=== PATIENT | female | born 1995 | race Two or more races ===

== ENCOUNTER 2024-05-01 14:12 | Outpatient (CLI) | payer OTHER | END 2024-05-01 14:15 | disposition home or self-care (01) | LOC: PRENATAL 14:12 | PROVIDERS: ATTEND Obstetrics & Gynecology Maternal & Fetal Medicine | DX: O44.00 Complete placenta previa NOS or without hemorrhage, unspecified trimester (principal); Z3A.27 27 weeks gestation of pregnancy ==

== ENCOUNTER → 2024-06-14 14:47 | Outpatient (CLI) | payer OTHER | END | disposition home or self-care (01) | LOC: PRENATAL 14:47 | PROVIDERS: ATTEND Obstetrics & Gynecology Maternal & Fetal Medicine | DX: O26.849 Uterine size-date discrepancy, unspecified trimester (principal); O36.8199 Decreased fetal movements, unspecified trimester, other fetus; O24.419 Gestational diabetes mellitus in pregnancy, unspecified control; Z3A.32 32 weeks gestation of pregnancy ==

== ENCOUNTER 2024-07-10 12:13 | Outpatient (CLI) | payer OTHER | END 2024-07-10 12:14 | disposition home or self-care (01) | LOC: PRENATAL 12:13 | PROVIDERS: ATTEND Obstetrics & Gynecology Maternal & Fetal Medicine | DX: O26.849 Uterine size-date discrepancy, unspecified trimester (principal); O36.8199 Decreased fetal movements, unspecified trimester, other fetus; Z3A.36 36 weeks gestation of pregnancy ==

== ENCOUNTER 2024-08-01 15:23 | Inpatient (IN) | payer OTHER ==
[~2024-08-01] VITALS: Ht 157.5 cm; Wt 66.7 kg
[2024-08-01 15:36] VITALS: BP 136/79
[2024-08-01] MEDS ORDERED: RINGERS SOLUTION,LACTATED 1,000 ML IV SCH (16:00)
[2024-08-01 16:20] LABS: PH,URINE 6.5 (5.0-8.0); URINE APPEARANCE Clear; URINE BILIRRUBIN Negative (NEGATIVE); URINE BLOOD Negative; URINE COLOR Yellow; URINE GLUCOSE Negative (NEGATIVE); URINE KETONE Negative (NEGATIVE); URINE LEUKOCYTE Moderate; URINE NITRATE Negative; URINE PROTEIN Negative (NEGATIVE); URINE UROBILINOGEN 0.2 E.U./dl
[2024-08-01 16:22] LABS: HEMATOCRIT 37.8 % (36.0-45.00); HEMOGLOBIN 13.3 g/dL (12.0-15.00); MEAN CELL VOLUME 90.6 fL (80.00-100.00); MEAN CORPUSCULAR HEMOGLOBIN 31.8 pg (27.00-32.0); MEAN CORPUSCULAR HGB CONC 35.1 g/dl (32.0-36.0); PLATELET COUNT 182 K/uL (150-450); RED BLOOD COUNT 4.18 M/uL (4.00-6.00); RED CELL DISTRIBUTION WIDTH 14.2 % (11.5-14.5); URINE BACTERIA 1237.1 uL (0.0-1933); URINE EPITHELIAL CELLS 35.1 uL (0.0-38.8); URINE WBC 119.1 uL (0.0-23.2)
[2024-08-01 16:24] LABS: URINE RBC 1.7 uL (0.0-20.8)
[2024-08-01 16:47] LABS: INR < 0.93; PARTIAL THROMBOPLASTIN TIME 25.7 SECONDS (22.0-34.0); PROTHROMBIN TIME 9.8 SECONDS (9.0-11.5)
[2024-08-01 16:52] LABS: ALBUMIN 2.7 gm/dL (3.4-5.0); BILIRUBIN TOTAL 0.24 mg/dL (0.3-1.2); CREATININE SERUM 0.75 mg/dL (0.55-1.02); GFR 92.01; GLOBULINA 3.6 G/DL (2.4-3.5); POTASSIUM 4.08 mEq/L (3.5-5.1); TOTAL PROTEIN 6.3 gm/dL (6.4-8.2)
[2024-08-01] MEDS ORDERED: MISOPROSTOL 25 MCG TABLET ONE (17:59)
[2024-08-01] MEDS ORDERED: hydrOXYzine PAMOATE 50 MG CAPSULE PO PRN (18:30)
[2024-08-01] MEDS ORDERED: MISOPROSTOL 25 MCG TABLET VAG ONE (18:30)
[2024-08-01 20:13] VITALS: BP 132/73
[2024-08-01 23:08] VITALS: BP 138/85
[2024-08-02] VITALS (10 sets, daily range): BP systolic 111–139; BP diastolic 58–75
[2024-08-02] MEDS ORDERED: OXYTOCIN 500 ML IV SCH (07:30)
[2024-08-02] MEDS ORDERED: OXYTOCIN 20 UNITS/500ML RL PIGGYBAG IV ONE (07:48)
[2024-08-02] MEDS ORDERED: ERYTHROMYCIN BASE OPHT 1GM EACH TUBE OP ONE ×2 (15:02→18:00)
[2024-08-02] MEDS ORDERED: CHLORHEXIDINE GLUCONATE 120 ML BOTTLE TOP ONE (15:03)
[2024-08-02] MEDS ORDERED: LIDOCAINE HCL 1% 10ML VIAL ONE ×2 (15:03→16:51)
[2024-08-02] MEDS ORDERED: OXYTOCIN 20 UNITS/1000ML RL PIGGYBAG IV ONE (15:03)
[2024-08-02] MEDS ORDERED: PRENATAL + DHA1 EAC1 PO (15:22)
[2024-08-02] MEDS ORDERED: DOCUSATE SODIUM 100MG CAP PO SCH (17:00)
[2024-08-02] MEDS ORDERED: OXYTOCIN 1,000 ML IV SCH (17:45)
[2024-08-02] MEDS ORDERED: CHLORHEXIDINE GLUCONATE 120 ML BOTTLE TOP SCH (17:45)
[2024-08-02] MEDS ORDERED: IBUprofen 400 MG TABLET PO PRN (17:45)
[2024-08-02] MEDS ORDERED: LIDOCAINE HCL 1% 10ML VIAL IJ ONE (18:00)
[2024-08-03] VITALS: BP 118/74
[2024-08-03 08:38] VITALS: BP 109/64
[2024-08-03 16:50] VITALS: BP 109/61
[2024-08-04] VITALS: BP 112/70
[2024-08-04 11:26] VITALS: BP 122/79
== END 2024-08-04 16:31 | disposition home or self-care (01) | DRG 807 ==
LOC: LDR 15:23 → OB/GYN 08-02 19:30
PROVIDERS: ADMIT Obstetrics & Gynecology; ATTEND Obstetrics & Gynecology
PROC: 3E0P7VZ Introduction of Hormone into Female Reproductive, Via Natural or Artificial Opening (ICD-10-PCS; 2024-08-01)
PROC: 4A1HXCZ Monitoring of Products of Conception, Cardiac Rate, External Approach (ICD-10-PCS; 2024-08-01)
PROC: 10E0XZZ Delivery of Products of Conception, External Approach (ICD-10-PCS; principal; 2024-08-02)
PROC: 0W8NXZZ Division of Female Perineum, External Approach (ICD-10-PCS; 2024-08-02)
PROC: 3E033VJ Introduction of Other Hormone into Peripheral Vein, Percutaneous Approach (ICD-10-PCS; 2024-08-02)
DX: O80 Encounter for full-term uncomplicated delivery (principal); Z37.0 Single live birth; Z3A.39 39 weeks gestation of pregnancy